=== PATIENT | male | born 1995 | race Caucasian/White ===

== ENCOUNTER 2020-09-10 23:24 | Emergency (ER) | payer OTHER, SELFPAY ==
[2020-09-10 23:36] VITALS: BP 155/93; PULSE 78; RESP 16; TEMP 36.8; O2SAT 100
[2020-09-10 23:47] VITALS: BP 155/93; PULSE 78; RESP 16; TEMP 36.8; O2SAT 100; BMI 65.7
--- NOTE | 2020-09-11 | XR_ITS ---
EXAMINATION: XR WRIST, LEFT CLINICAL INFORMATION: Status post injury. Pain. COMPARISON: None TECHNIQUE: PA, lateral, and oblique views of the left wrist. FINDINGS: The bones and soft tissues are normal. No fracture. Alignment is anatomic with normal joint spaces. No erosions or abnormal soft tissue calcifications. No radiopaque foreign body. No soft tissue emphysema. XR/XR wrist LT min 3V IMPRESSION: Left wrist: No acute fracture or malalignment.
--- NOTE | 2020-09-11 00:33 | ED.EXTPRO ---
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 feeling in the left wrist. This injury occurred 09/10/2020 at 20:30 at work. States pain only with certain movements otherwise no pain at rest. MD Complaint: extremity pain Onset (ago): minute(s) Location: left Radiation: none Relieving factors: immobilization Related Data Allergies Allergy/AdvReac Type Severity Reaction Status Date / Time No Known Allergies Allergy Verified 09/11/20 00:05 Review of Systems Review of Systems: Constitutional: No Weight loss, No Fever, No Chills, No Night Sweats, No Fatigue, No Malaise ENT/Mouth: No Hearing loss, No Ear Pain, No Nasal Congestion, No Sinus Pain, No Hoarseness, No sore throat, No Rhinorrhea Eyes: No Eye Pain, No Swelling, No Redness, No Foreign Body, No Discharge, No Vision Changes Cardiovascular: No Chest Pain Respiratory: No Cough Gastrointestinal: No Nausea, No Vomiting, No Diarrhea, No Constipation, No abdominal Pain Musculoskeletal: as noted in HPI Skin: No Skin Lesions, No rash Neuro: No Weakness, No Numbness, No Paresthesias, No Loss of Consciousness, No Dizziness, No Headache Psych: No Social Issues Heme/Lymph: No Bruising, No Bleeding,No Lymphadenopathy Endocrine: No Polyuria, No Polydipsia, No Temperature Intolerance Yes all other systems are reviewed and are negative [facility] Past Medical History Medical History No known health problems Social History Social History Advance Directives: No Physical Exam Vital Signs: Vital Signs: Last Vital Signs Temp 98.3 F 09/10/20 23:47 Pulse 78 09/10/20 23:47 Resp 16 09/10/20 23:47 BP 155/93 H 09/10/20 23:47 Pulse Ox 100 09/10/20 23:47 Body Mass Index 65.7 Reviewed Const: General: cooperative and healthy appearing; No acute distress or intoxicated appearing Nutritional Appearance: average body habitus Orientation/consciousness: patient oriented x3 Chest: Chest palpation & inspection: normal inspection of the chest Resp: Effort & Inspection: normal respiratory effort Skin: General skin exam: no rashes or lesions noted Neuro: General: patient oriented x3 Extrem: General: Yes normal to inspection Left upper extremity: full ROM and wrist (Left wrist slight TTP over the radial head otherwise full range of motion.) Course Course Course Narrative: May be consistent with strain type injury to left upper extremity. X-ray without acute findings. PETEY , rice, NSAIDs, return follow-up provided. MDM - Extremity (Nontraumatic) Imaging Data Left wrist: Radiologist's impression: [address] [address] XRay Report Signed Patient: CHRISTINA SIMEON#: [id number] : 1995Acct:[id number] Age/Sex: 24 / MADM Date: 09/10/20 Loc: .ED Attending Dr: Ordering Physician: Montana Perez NP Date of Service: 09/11/20 Procedure(s): XR wrist LT min 3V Accession Number(s): [id number] cc: Montana Perez [employer] ARCHITECT~ EXAMINATION: XR WRIST, LEFT CLINICAL INFORMATION: Status post injury. Pain. COMPARISON: None TECHNIQUE: PA, lateral, and oblique views of the left wrist. FINDINGS: The bones and soft tissues are normal. No fracture. Alignment is anatomic with normal joint spaces. No erosions or abnormal soft tissue calcifications. No radiopaque foreign body. No soft tissue emphysema. XR/XR wrist LT min 3V IMPRESSION: Left wrist: No acute fracture or malalignment. Dictated By:Monica Rinaldi MD Signed By:<Electronically signed by Monica Rinaldi MD in OV>09/11/20 0036 DD/ 0024 TD/TT: Personalization Specialist: Discharge Plan Discharge Clinical Impression: Sprain and strain of wrist Patient Disposition: Home, Self-Care Instructions: Wrist Sprain (ED) Additional Instructions: X-ray without acute abnormality Petey wrap Ice Gentle stretching NSAIDs [id number] as per label instructions [facility] Return if any concerns or worsening symptoms Thank you Referrals: Physician,None [Primary Care Provider] - 2 days Stand Alone Forms: Work/School Release
== END 2020-09-11 01:10 | disposition home or self-care (01) ==
PROVIDERS: Emergency Provider Student in an Organized Health Care Education/Training Program
DX: S63.502A Unspecified sprain of left wrist, initial encounter (principal); S66.912A Strain of unspecified muscle, fascia and tendon at wrist and hand level, left hand, initial encounter; Y93.F2 Activity, caregiving, lifting; Y92.538 Other ambulatory health services establishments as the place of occurrence of the external cause; Y99.0 Civilian activity done for income or pay
CPT/HCPCS: 73110; 99283; 99284

== ENCOUNTER → 2020-09-16 08:58 | Outpatient (BNVA) | payer OTHER, SELFPAY | PROVIDERS: Visit Provider Physician Assistant | DX: S69.92XD Unspecified injury of left wrist, hand and finger(s), subsequent encounter (principal); X58.XXXD Exposure to other specified factors, subsequent encounter | CPT/HCPCS: 99202 ==